=== PATIENT | male | born 1940 | race Caucasian/White ===

== ENCOUNTER 2020-08-12 09:13 | Inpatient (IN) ==
[2020-08-12] MEDS ORDERED: ONDANSETRON 4 MG/2 ML VIAL IV STA (09:41)
[2020-08-12] MEDS ORDERED: MORPHINE 4 MG/1 ML VIAL IV ONE (09:41)
[2020-08-12 10:18] LABS: Basophils # 0.1 10*3/uL (0.0-0.2); Basophils % 0.5 % (0.0-0.8); Eosinophils % 0.1 % (0.00-10.9); Hematocrit 41.1 VOL% (42.0-52.0); Hemoglobin 14.5 GM/DL (14.0-18.0); Immature Granulocytes % 0.6 %; Immature Granulocytes Absolute 0.08 #; Lymphocytes # 1.2 10*3/uL (1.4-4.0); Lymphocytes % 8.1 % (21.2-54.2); Mean Corpuscular HGB Conc 35.3 GM/DL (32-36); Mean Corpuscular Volume 89.9 FL (87-102); Mean Platelet Volume 9.1 FL (9.6-12.0); Monocytes % 10.6 % (1.7-12.7); Neutrophils % 80.1 % (38.7-73.9); Platelet Count 293 T/CUMM (130-400); Red Blood Count 4.57 MC/CUMM (3.8-5.5); White Blood Count 14.3 T/CUMM (4-12)
[2020-08-12 10:31] LABS: INR 1.2; PT Patient Result 12.4 SECS (9.8-11.9); Partial Thromboplastin Time 28.9 SECS (23.9-33.8)
[2020-08-12 10:46] LABS: Alanine Aminotransferase 26 U/L (16-61); Albumin 3.6 G/DL (3.4-5.0); Alkaline Phosphatase 73 U/L (45-117); Aspartate Amino Transferase 26 U/L (0-37); Blood Urea Nitrogen 12 MG/DL (7-18); Calcium 9.3 MG/DL (8.5-10.1); Estimated Glom Filtration Rate 75 ML/MIN; Glucose 160 MG/DL (74-106); Osmolality,Calculated 270.2 MOS/KG (273-304); Total Protein 8.2 G/DL (6.4-8.3); Troponin I < 0.015 NG/ML (0.00-0.045)
[2020-08-12] MEDS ORDERED: SODIUM CHLORIDE 0.9% 1,000 ML IV STA ×2 (12:45→13:43)
[2020-08-12] MEDS ORDERED: BISACODYL 5 MG TABLET PO PRN (12:51)
[2020-08-12] MEDS ORDERED: GLUCAGON 1 MG VIAL IM PRN (12:51)
[2020-08-12] MEDS ORDERED: ONDANSETRON 4 MG/2 ML VIAL IV PRN (12:51)
[2020-08-12] MEDS ORDERED: MORPHINE 4 MG/1 ML VIAL IV PRN (12:51)
[2020-08-12] MEDS ORDERED: DEXTROSE 50% 25 GM/50 ML VIAL IV PRN (12:51)
[2020-08-12] MEDS ORDERED: LEVOFLOXACIN INJ 750 MG in PREMIX 1 EACH IV STA (12:53)
[2020-08-12] MEDS: ALBUTEROL/IPRATROPIUM 3 ML NEB RESP TX SCH ×2 (13:20→19:18)
[2020-08-12] MEDS ORDERED: cefTRIAXone 1,000 MG in SYRINGE 1 EACH IV SCH (14:00)
[2020-08-12 14:05] LABS: ABG Base Excess 5.9 MMOL/L (-2.5-2.5); ABG HCO3 29.6 MMOL/L (20-26); ABG Oxygen Saturation 90.7 % (95-100); ABG PCO2 36.7 MM HG (35-48); ABG PH 7.507 (7.35-7.45); ABG PO2 57.1 MM HG (80-95); ABG TCO2 24.9 MMOL/L (23-27)
[2020-08-12] MEDS: KETOROLAC 15 MG/1 ML VIAL IV SCH ×2 (16:22→20:46)
[2020-08-12] MEDS: SODIUM CHLORIDE 0.9% 1,000 ML IV SCH (16:24)
[2020-08-12] MEDS: INSULIN REGULAR 100 UNIT/ML SUBCUT SCH ×2 (16:35→21:37)
[2020-08-12] MEDS: AZITHROMYCIN INJ 500 MG in SODIUM CHLORIDE 0.9% 250 ML IV SCH (16:37)
[2020-08-12] MEDS: ACETAMINOPHEN 325 MG TABLET PO PRN (18:21)
[2020-08-12] MEDS: CEFEPIME 1,000 MG in SODIUM CHLORIDE 0.9% 100 ML IV SCH ×2 (18:24→22:29)
[2020-08-13] MEDS: ALBUTEROL/IPRATROPIUM 3 ML NEB RESP TX SCH ×4 (01:16→19:23)
[2020-08-13] MEDS: KETOROLAC 15 MG/1 ML VIAL IV SCH ×3 (03:13→15:31)
[2020-08-13] MEDS: CEFEPIME 1,000 MG in SODIUM CHLORIDE 0.9% 100 ML IV SCH ×4 (03:17→21:08)
[2020-08-13] MEDS: ACETAMINOPHEN 325 MG TABLET PO PRN (04:27)
[2020-08-13] MEDS: SODIUM CHLORIDE 0.9% 1,000 ML IV SCH ×2 (04:28→16:33)
[2020-08-13 05:16] LABS: Basophils % 0.3 % (0.0-0.8); Eosinophils # 0.1 10*3/uL (0.0-0.87); Eosinophils % 0.4 % (0.00-10.9); Hematocrit 34.5 VOL% (42.0-52.0); Immature Granulocytes % 0.6 %; Lymphocytes # 0.8 10*3/uL (1.4-4.0); Mean Corpuscular HGB Conc 34.8 GM/DL (32-36); Mean Corpuscular Volume 92.7 FL (87-102); Mean Platelet Volume 9.6 FL (9.6-12.0); Monocytes % 6.8 % (1.7-12.7); Neutrophils % 86.9 % (38.7-73.9); Platelet Count 231 T/CUMM (130-400); Red Blood Count 3.72 MC/CUMM (3.8-5.5); Red Cell Distribution Width 12.1 % (9.3-17.3); White Blood Count 15.6 T/CUMM (4-12)
[2020-08-13 05:35] LABS: Calcium 7.7 MG/DL (8.5-10.1); Osmolality,Calculated 276.8 MOS/KG (273-304); Risk Ratio 1.69; VLDL CHOLESTEROL 10.2 MG/DL
[2020-08-13] MEDS: INSULIN REGULAR 100 UNIT/ML SUBCUT SCH ×4 (07:43→20:26)
[2020-08-13] MEDS: methylPREDNISolone SOD SUC 125 MG/2 ML VIAL IV SCH ×2 (10:56→18:20)
[2020-08-13] MEDS: guaiFENesin/DM ER 600-30 MG TABLET PO SCH ×2 (10:56→20:24)
[2020-08-13] MEDS: AZITHROMYCIN INJ 500 MG in SODIUM CHLORIDE 0.9% 250 ML IV SCH (15:32)
[2020-08-13] MEDS ORDERED: ZALEPLON 5 MG CAPSULE PO PRN (18:03)
[2020-08-14] MEDS: ALBUTEROL/IPRATROPIUM 3 ML NEB RESP TX SCH ×3 (01:11→13:30)
[2020-08-14] MEDS: methylPREDNISolone SOD SUC 125 MG/2 ML VIAL IV SCH ×2 (03:43→10:10)
[2020-08-14] MEDS: CEFEPIME 1,000 MG in SODIUM CHLORIDE 0.9% 100 ML IV SCH ×2 (03:46→10:10)
[2020-08-14 04:57] LABS: Basophils % 0.1 % (0.0-0.8); Hematocrit 32.5 VOL% (42.0-52.0); Hemoglobin 11.5 GM/DL (14.0-18.0); Immature Granulocytes % 0.7 %; Immature Granulocytes Absolute 0.09 #; Lymphocytes % 7.2 % (21.2-54.2); Mean Corpuscular HGB Conc 35.4 GM/DL (32-36); Mean Corpuscular Volume 90.3 FL (87-102); Mean Platelet Volume 9.1 FL (9.6-12.0); Monocytes % 2.1 % (1.7-12.7); Neutrophils % 89.9 % (38.7-73.9); Platelet Count 254 T/CUMM (130-400); Red Cell Distribution Width 11.9 % (9.3-17.3); White Blood Count 13.5 T/CUMM (4-12)
[2020-08-14 05:13] LABS: Osmolality,Calculated 279.7 MOS/KG (273-304)
[2020-08-14] MEDS ORDERED: POTASSIUM CHLORIDE 20 MEQ TABLET PO PRN (07:40)
[2020-08-14] MEDS: guaiFENesin/DM ER 600-30 MG TABLET PO SCH (08:44)
[2020-08-14] MEDS: INSULIN REGULAR 100 UNIT/ML SUBCUT SCH ×2 (08:46→11:35)
[2020-08-14] MEDS ORDERED: AZITHROMYCIN 250 MG TABLET PO SCH (09:00)
[2020-08-14 12:09] VITALS: BP 143/59
== END 2020-08-14 14:09 | disposition home or self-care (01) | DRG 177 ==
LOC: N.ED 09:13 → N.EDINP 12:51 → SUATTDRO 12:51 → N.3E 13:10
PROVIDERS: ADMIT Internal Medicine; ATTEND Internal Medicine

== ENCOUNTER 2021-10-23 11:10 | Inpatient (IN) ==
[2021-10-23 12:05] LABS: Basophils # 0.1 10*3/uL (0.0-0.2); Basophils % 0.9 % (0.0-0.8); Eosinophils # 0.3 10*3/uL (0.0-0.87); Eosinophils % 3.6 % (0.00-10.9); Hematocrit 37.1 VOL% (42.0-52.0); Hemoglobin 12.8 GM/DL (14.0-18.0); Immature Granulocytes % 0.4 %; Immature Granulocytes Absolute 0.03 #; Lymphocytes # 3.5 10*3/uL (1.4-4.0); Lymphocytes % 46.6 % (21.2-54.2); Mean Corpuscular HGB Conc 34.5 GM/DL (32-36); Mean Corpuscular Volume 95.4 FL (87-102); Mean Platelet Volume 8.9 FL (9.6-12.0); Monocytes % 10.5 % (1.7-12.7); Platelet Count 363 T/CUMM (130-400); Red Blood Count 3.89 MC/CUMM (3.8-5.5); White Blood Count 7.4 T/CUMM (4-12)
[2021-10-23 12:22] LABS: Albumin 3.1 G/DL (3.4-5.0); Bilirubin,Total 0.4 MG/DL (0.20-1.00); Calcium 8.6 MG/DL (8.5-10.1); Osmolality,Calculated 272.2 MOS/KG (273-304); Potassium 4.4 MMOL/L (3.5-5.1); Total Protein 7.4 G/DL (6.4-8.2)
[2021-10-23] MEDS ORDERED: THIAMINE INJ 100 MG, FOLIC ACID INJ 1 MG, MAGNESIUM SULF INJ 2 GM, MULTIVITAMIN INJ 10 ... IV ONE (12:28)
[2021-10-23 12:30] LABS: Anisocytosis Slight; Eosinophils 3 % (0-10); Lymphocytes 47 % (20-55); Macrocytosis Slight; Platelet Estimate Normal; Segmented Neutrophils 44 % (50-85); Total Cells Counted 100
[2021-10-23 12:40] LABS: Barbiturates Screen,Urine Negative (Negative); Benzodiazepines Screen,Urine Negative (Negative); Cannabinoid Screen,Urine Negative (Negative); Opiate Screen,Urine Negative (Negative); Phencyclidine Screen,Urine Negative (Negative)
[2021-10-23 12:42] LABS: Bilirubin,Urine Negative (Negative); Blood, Urine Negative (Negative); Glucose,Urine (UA) Negative (Negative); Hyaline Casts,Urine 1 /LPF (0-3); Ketones,Urine Negative (Negative); Nitrite,Urine Negative (Negative); Protein,Urine Negative; RBC,Urine 1 /HPF (0-4); Squamous Epithelial Cell,Urine Occasional /HPF (0-10); Urine Appearance CLEAR (Clear); Urine Color Yellow (Yellow); Urine Specific Gravity 1.006 (1.001-1.035); Urine Urobilinogen < 2.0 EU/DL (<2.0)
[2021-10-23] MEDS ORDERED: BISACODYL 5 MG TABLET PO PRN (14:33)
[2021-10-23] MEDS ORDERED: GLUCAGON 1 MG VIAL IM PRN (14:33)
[2021-10-23] MEDS ORDERED: DEXTROSE 50% 25 GM/50 ML SYRINGE IV PRN (14:33)
[2021-10-23] MEDS ORDERED: ONDANSETRON 4 MG/2 ML VIAL IV PRN (14:33)
[2021-10-23] MEDS ORDERED: NICOTINE 21 MG/24 HR PATCH TRANSDERM PRN (14:43)
[2021-10-23] MEDS ORDERED: ALBUTEROL 2.5 MG/3 ML NEB RESP TX PRN (14:44)
[2021-10-23] MEDS: LORazepam 1 MG TABLET PO SCH ×3 (19:42→23:15)
[2021-10-23] MEDS: DEXTROSE 5% NACL 0.9% 1,000 ML IV SCH ×2 (19:42→23:16)
[2021-10-23] MEDS: ENOXAPARIN 40 MG/0.4 ML SYRINGE SUBCUT SCH (19:42)
[2021-10-24] MEDS: LORazepam 1 MG TABLET PO SCH ×5 (02:08→20:30)
[2021-10-24 06:03] LABS: Basophils # 0.1 10*3/uL (0.0-0.2); Basophils % 0.8 % (0.0-0.8); Eosinophils # 0.1 10*3/uL (0.0-0.87); Eosinophils % 1.3 % (0.00-10.9); Hematocrit 35.9 VOL% (42.0-52.0); Hemoglobin 12.1 GM/DL (14.0-18.0); Immature Granulocytes % 0.7 %; Immature Granulocytes Absolute 0.05 #; Lymphocytes # 1.3 10*3/uL (1.4-4.0); Lymphocytes % 16.5 % (21.2-54.2); Mean Corpuscular HGB Conc 33.7 GM/DL (32-36); Mean Platelet Volume 9.3 FL (9.6-12.0); Monocytes % 14.9 % (1.7-12.7); Neutrophils % 65.8 % (38.7-73.9); Platelet Count 365 T/CUMM (130-400); Red Cell Distribution Width 12.1 % (9.3-17.3); White Blood Count 7.6 T/CUMM (4-12)
[2021-10-24] MEDS: DEXTROSE 5% NACL 0.9% 1,000 ML IV SCH ×4 (06:20→23:35)
[2021-10-24 06:25] LABS: Folate 16.64 NG/ML (5.38-24.0)
[2021-10-24 06:25] LABS: Calcium 8.4 MG/DL (8.5-10.1); Osmolality,Calculated 278.5 MOS/KG (273-304); Risk Ratio 1.95; Thyroid Stimulating Hormone 4.5 uIU/ml (0.358-3.74); VLDL Cholesterol 11.2 MG/DL
[2021-10-24 09:52] LABS: Free T4 (Free Thyroxine) 0.98 NG/DL (0.76-1.46)
[2021-10-24] MEDS: PANTOPRAZOLE 40 MG TABLET PO SCH (11:22)
[2021-10-24] MEDS: MONTELUKAST 10 MG TABLET PO SCH (11:24)
[2021-10-24] MEDS: THIAMINE INJ 100 MG, FOLIC ACID INJ 1 MG, MULTIVITAMIN INJ 10 ML in SODIUM CHLORIDE 0.9... IV SCH (11:58)
[2021-10-24] MEDS: ENOXAPARIN 40 MG/0.4 ML SYRINGE SUBCUT SCH (15:49)
[2021-10-24] MEDS: ATORVASTATIN 40 MG TABLET PO SCH (20:30)
[2021-10-24] MEDS ORDERED: OLANZapine 10 MG VIAL IM ONE (23:10)
[2021-10-25] MEDS: LORazepam 1 MG TABLET PO SCH ×5 (02:13→22:05)
[2021-10-25] MEDS ORDERED: LORazepam 2 MG/1 ML VIAL IV PRN (02:33)
[2021-10-25] MEDS: DEXTROSE 5% NACL 0.9% 1,000 ML IV SCH ×4 (04:14→22:05)
[2021-10-25 05:50] LABS: Basophils % 0.5 % (0.0-0.8); Eosinophils # 0.2 10*3/uL (0.0-0.87); Eosinophils % 3.3 % (0.00-10.9); Hematocrit 36.2 VOL% (42.0-52.0); Hemoglobin 12.3 GM/DL (14.0-18.0); Immature Granulocytes % 0.3 %; Immature Granulocytes Absolute 0.02 #; Lymphocytes # 2.1 10*3/uL (1.4-4.0); Mean Corpuscular Volume 97.3 FL (87-102); Monocytes % 8.8 % (1.7-12.7); Neutrophils % 59.1 % (38.7-73.9); Platelet Count 315 T/CUMM (130-400); Red Blood Count 3.72 MC/CUMM (3.8-5.5); Red Cell Distribution Width 11.9 % (9.3-17.3); White Blood Count 7.4 T/CUMM (4-12)
[2021-10-25] MEDS: VANCOMYCIN 50 MG/ML 60 ML/BOTTLE PO SCH ×3 (06:01→17:34)
[2021-10-25 06:13] LABS: Calcium 8.1 MG/DL (8.5-10.1); Osmolality,Calculated 274.5 MOS/KG (273-304); Potassium 3.4 MMOL/L (3.5-5.1)
[2021-10-25] MEDS: VALSARTAN 80 MG TABLET PO SCH (09:08)
[2021-10-25] MEDS: MONTELUKAST 10 MG TABLET PO SCH (09:09)
[2021-10-25] MEDS: METOPROLOL TARTRATE 50 MG TABLET PO SCH (09:09)
[2021-10-25] MEDS: PANTOPRAZOLE 40 MG TABLET PO SCH (09:09)
[2021-10-25] MEDS: THIAMINE INJ 100 MG, FOLIC ACID INJ 1 MG, MULTIVITAMIN INJ 10 ML in SODIUM CHLORIDE 0.9... IV SCH (09:12)
[2021-10-25] MEDS: ENOXAPARIN 40 MG/0.4 ML SYRINGE SUBCUT SCH (14:19)
[2021-10-25] MEDS: ATORVASTATIN 40 MG TABLET PO SCH (22:05)
[2021-10-26] MEDS: VANCOMYCIN 50 MG/ML 60 ML/BOTTLE PO SCH ×4 (00:55→19:23)
[2021-10-26] MEDS: LORazepam 2 MG/1 ML VIAL IV PRN (02:18)
[2021-10-26] MEDS: LORazepam 1 MG TABLET PO SCH ×4 (02:19→21:17)
[2021-10-26 04:59] LABS: Basophils # 0.1 10*3/uL (0.0-0.2); Basophils % 0.8 % (0.0-0.8); Eosinophils # 0.7 10*3/uL (0.0-0.87); Eosinophils % 10.9 % (0.00-10.9); Hemoglobin 11.1 GM/DL (14.0-18.0); Immature Granulocytes % 0.3 %; Immature Granulocytes Absolute 0.02 #; Lymphocytes # 1.8 10*3/uL (1.4-4.0); Lymphocytes % 28.2 % (21.2-54.2); Mean Corpuscular HGB Conc 33.6 GM/DL (32-36); Mean Corpuscular Volume 97.1 FL (87-102); Mean Platelet Volume 9.2 FL (9.6-12.0); Monocytes % 11.5 % (1.7-12.7); Neutrophils % 48.3 % (38.7-73.9); Platelet Count 293 T/CUMM (130-400); Red Cell Distribution Width 11.9 % (9.3-17.3); White Blood Count 6.4 T/CUMM (4-12)
[2021-10-26 05:33] LABS: Calcium 8.1 MG/DL (8.5-10.1); Potassium 3.4 MMOL/L (3.5-5.1)
[2021-10-26] MEDS: DEXTROSE 5% NACL 0.9% 1,000 ML IV SCH ×3 (06:05→23:45)
[2021-10-26] MEDS ORDERED: POTASSIUM CHLORIDE 20 MEQ TABLET PO ONE (08:10)
[2021-10-26] MEDS: MONTELUKAST 10 MG TABLET PO SCH (09:38)
[2021-10-26] MEDS: PANTOPRAZOLE 40 MG TABLET PO SCH (09:39)
[2021-10-26] MEDS: METOPROLOL TARTRATE 50 MG TABLET PO SCH (09:39)
[2021-10-26] MEDS: VALSARTAN 80 MG TABLET PO SCH (09:39)
[2021-10-26] MEDS: THIAMINE INJ 100 MG, FOLIC ACID INJ 1 MG, MULTIVITAMIN INJ 10 ML in SODIUM CHLORIDE 0.9... IV SCH (09:40)
[2021-10-26] MEDS: ACETAMINOPHEN 325 MG TABLET PO PRN (14:41)
[2021-10-26] MEDS: ENOXAPARIN 40 MG/0.4 ML SYRINGE SUBCUT SCH (14:43)
[2021-10-26] MEDS: ATORVASTATIN 40 MG TABLET PO SCH (21:17)
[2021-10-27] MEDS: VANCOMYCIN 50 MG/ML 60 ML/BOTTLE PO SCH ×4 (00:51→18:42)
[2021-10-27 05:20] LABS: Basophils # 0.1 10*3/uL (0.0-0.2); Eosinophils # 0.4 10*3/uL (0.0-0.87); Eosinophils % 7.1 % (0.00-10.9); Hematocrit 36.9 VOL% (42.0-52.0); Hemoglobin 12.4 GM/DL (14.0-18.0); Immature Granulocytes % 0.5 %; Immature Granulocytes Absolute 0.03 #; Lymphocytes # 1.9 10*3/uL (1.4-4.0); Lymphocytes % 31.9 % (21.2-54.2); Mean Corpuscular HGB Conc 33.6 GM/DL (32-36); Mean Corpuscular Volume 96.9 FL (87-102); Mean Platelet Volume 8.7 FL (9.6-12.0); Monocytes % 10.6 % (1.7-12.7); Neutrophils % 48.9 % (38.7-73.9); Platelet Count 268 T/CUMM (130-400); Red Blood Count 3.81 MC/CUMM (3.8-5.5); Red Cell Distribution Width 11.6 % (9.3-17.3)
[2021-10-27] MEDS: LORazepam 2 MG/1 ML VIAL IV PRN (05:28)
[2021-10-27 05:41] LABS: Calcium 8.1 MG/DL (8.5-10.1); Osmolality,Calculated 280.1 MOS/KG (273-304); Potassium 3.8 MMOL/L (3.5-5.1)
[2021-10-27] MEDS: LORazepam 1 MG TABLET PO SCH (09:27)
[2021-10-27] MEDS: MONTELUKAST 10 MG TABLET PO SCH (09:27)
[2021-10-27] MEDS: VALSARTAN 80 MG TABLET PO SCH (09:27)
[2021-10-27] MEDS: PANTOPRAZOLE 40 MG TABLET PO SCH (09:28)
[2021-10-27] MEDS: METOPROLOL TARTRATE 50 MG TABLET PO SCH (09:28)
[2021-10-27] MEDS: DEXTROSE 5% NACL 0.9% 1,000 ML IV SCH (10:13)
[2021-10-27] MEDS: THIAMINE INJ 100 MG, FOLIC ACID INJ 1 MG, MULTIVITAMIN INJ 10 ML in SODIUM CHLORIDE 0.9... IV SCH (10:35)
[2021-10-27] MEDS: ENOXAPARIN 40 MG/0.4 ML SYRINGE SUBCUT SCH (14:38)
[2021-10-27] MEDS: CLORAZEPATE 7.5 MG TABLET PO SCH ×2 (14:38→21:28)
[2021-10-27] MEDS: ATORVASTATIN 40 MG TABLET PO SCH (21:29)
[2021-10-28] MEDS: VANCOMYCIN 50 MG/ML 60 ML/BOTTLE PO SCH ×4 (00:05→17:40)
[2021-10-28 05:26] LABS: Basophils # 0.1 10*3/uL (0.0-0.2); Basophils % 0.8 % (0.0-0.8); Eosinophils # 0.3 10*3/uL (0.0-0.87); Eosinophils % 4.5 % (0.00-10.9); Hematocrit 32.7 VOL% (42.0-52.0); Hemoglobin 11.3 GM/DL (14.0-18.0); Immature Granulocytes % 0.5 %; Immature Granulocytes Absolute 0.03 #; Lymphocytes # 1.6 10*3/uL (1.4-4.0); Lymphocytes % 23.6 % (21.2-54.2); Mean Corpuscular HGB Conc 34.6 GM/DL (32-36); Mean Corpuscular Volume 95.9 FL (87-102); Mean Platelet Volume 8.9 FL (9.6-12.0); Monocytes % 10.9 % (1.7-12.7); Neutrophils % 59.7 % (38.7-73.9); Platelet Count 264 T/CUMM (130-400); Red Blood Count 3.41 MC/CUMM (3.8-5.5); Red Cell Distribution Width 11.7 % (9.3-17.3); White Blood Count 6.6 T/CUMM (4-12)
[2021-10-28 05:48] LABS: Calcium 8.3 MG/DL (8.5-10.1); Osmolality,Calculated 278.1 MOS/KG (273-304); Potassium 3.9 MMOL/L (3.5-5.1)
[2021-10-28] MEDS: CLORAZEPATE 7.5 MG TABLET PO SCH ×3 (09:25→21:53)
[2021-10-28] MEDS: VALSARTAN 80 MG TABLET PO SCH (09:25)
[2021-10-28] MEDS: PANTOPRAZOLE 40 MG TABLET PO SCH (09:26)
[2021-10-28] MEDS: METOPROLOL TARTRATE 50 MG TABLET PO SCH (09:26)
[2021-10-28] MEDS: MONTELUKAST 10 MG TABLET PO SCH (09:28)
[2021-10-28] MEDS: THIAMINE INJ 100 MG, FOLIC ACID INJ 1 MG, MULTIVITAMIN INJ 10 ML in SODIUM CHLORIDE 0.9... IV SCH (09:29)
[2021-10-28] MEDS ORDERED: MAGNESIUM SULF RIDER 4 GM/100 ML PREMIX IV ONE (15:11)
[2021-10-28] MEDS: ENOXAPARIN 40 MG/0.4 ML SYRINGE SUBCUT SCH (15:58)
[2021-10-28] MEDS: ATORVASTATIN 40 MG TABLET PO SCH (21:53)
[2021-10-29] MEDS: VANCOMYCIN 50 MG/ML 60 ML/BOTTLE PO SCH ×4 (00:58→17:12)
[2021-10-29 07:18] LABS: Basophils # 0.1 10*3/uL (0.0-0.2); Basophils % 0.8 % (0.0-0.8); Eosinophils # 0.5 10*3/uL (0.0-0.87); Eosinophils % 6.7 % (0.00-10.9); Hematocrit 32.1 VOL% (42.0-52.0); Immature Granulocytes % 0.4 %; Immature Granulocytes Absolute 0.03 #; Lymphocytes # 1.5 10*3/uL (1.4-4.0); Lymphocytes % 20.1 % (21.2-54.2); Mean Corpuscular HGB Conc 34.3 GM/DL (32-36); Mean Corpuscular Volume 95.8 FL (87-102); Mean Platelet Volume 9.2 FL (9.6-12.0); Monocytes % 10.3 % (1.7-12.7); Neutrophils % 61.7 % (38.7-73.9); Platelet Count 247 T/CUMM (130-400); Red Blood Count 3.35 MC/CUMM (3.8-5.5); Red Cell Distribution Width 11.9 % (9.3-17.3); White Blood Count 7.2 T/CUMM (4-12)
[2021-10-29 07:47] LABS: Calcium 8.3 MG/DL (8.5-10.1); Osmolality,Calculated 278.1 MOS/KG (273-304); Potassium 3.6 MMOL/L (3.5-5.1)
[2021-10-29] MEDS ORDERED: MAGNESIUM SULF RIDER 2 GM/50 ML PREMIX IV ONE (08:09)
[2021-10-29] MEDS: METOPROLOL TARTRATE 50 MG TABLET PO SCH (09:32)
[2021-10-29] MEDS: CLORAZEPATE 7.5 MG TABLET PO SCH ×3 (09:32→20:19)
[2021-10-29] MEDS: VALSARTAN 80 MG TABLET PO SCH (09:32)
[2021-10-29] MEDS: PANTOPRAZOLE 40 MG TABLET PO SCH (09:32)
[2021-10-29] MEDS: MONTELUKAST 10 MG TABLET PO SCH (09:33)
[2021-10-29] MEDS: THIAMINE INJ 100 MG, FOLIC ACID INJ 1 MG, MULTIVITAMIN INJ 10 ML in SODIUM CHLORIDE 0.9... IV SCH (14:28)
[2021-10-29] MEDS: ENOXAPARIN 40 MG/0.4 ML SYRINGE SUBCUT SCH (14:28)
[2021-10-29] MEDS: ATORVASTATIN 40 MG TABLET PO SCH (20:19)
[2021-10-30] MEDS: VANCOMYCIN 50 MG/ML 60 ML/BOTTLE PO SCH ×4 (01:43→20:10)
[2021-10-30 05:30] LABS: Basophils # 0.1 10*3/uL (0.0-0.2); Basophils % 1.1 % (0.0-0.8); Eosinophils # 0.5 10*3/uL (0.0-0.87); Eosinophils % 8.3 % (0.00-10.9); Hematocrit 33.2 VOL% (42.0-52.0); Immature Granulocytes % 0.4 %; Immature Granulocytes Absolute 0.02 #; Lymphocytes # 1.8 10*3/uL (1.4-4.0); Lymphocytes % 30.8 % (21.2-54.2); Mean Corpuscular HGB Conc 33.1 GM/DL (32-36); Mean Corpuscular Volume 97.4 FL (87-102); Mean Platelet Volume 9.6 FL (9.6-12.0); Monocytes % 11.6 % (1.7-12.7); Neutrophils % 47.8 % (38.7-73.9); Platelet Count 243 T/CUMM (130-400); Red Blood Count 3.41 MC/CUMM (3.8-5.5); Red Cell Distribution Width 11.9 % (9.3-17.3); White Blood Count 5.7 T/CUMM (4-12)
[2021-10-30 05:47] LABS: Calcium 8.5 MG/DL (8.5-10.1); Osmolality,Calculated 276.3 MOS/KG (273-304); Potassium 3.7 MMOL/L (3.5-5.1)
[2021-10-30] MEDS: CLORAZEPATE 7.5 MG TABLET PO SCH ×3 (10:28→20:10)
[2021-10-30] MEDS: VALSARTAN 80 MG TABLET PO SCH (10:28)
[2021-10-30] MEDS: METOPROLOL TARTRATE 50 MG TABLET PO SCH (10:28)
[2021-10-30] MEDS: PANTOPRAZOLE 40 MG TABLET PO SCH (10:29)
[2021-10-30] MEDS: MONTELUKAST 10 MG TABLET PO SCH (10:29)
[2021-10-30] MEDS: THIAMINE INJ 100 MG, FOLIC ACID INJ 1 MG, MULTIVITAMIN INJ 10 ML in SODIUM CHLORIDE 0.9... IV SCH (10:29)
[2021-10-30] MEDS ORDERED: MAGNESIUM SULF RIDER 2 GM/50 ML PREMIX IV ONE (12:48)
[2021-10-30 13:22] LABS: Basophils # 0.1 10*3/uL (0.0-0.2); Basophils % 0.8 % (0.0-0.8); Eosinophils # 0.4 10*3/uL (0.0-0.87); Eosinophils % 6.8 % (0.00-10.9); Hematocrit 31.2 VOL% (42.0-52.0); Hemoglobin 10.5 GM/DL (14.0-18.0); Immature Granulocytes % 0.2 %; Immature Granulocytes Absolute 0.01 #; Lymphocytes % 30.1 % (21.2-54.2); Mean Corpuscular HGB Conc 33.7 GM/DL (32-36); Mean Corpuscular Volume 96.6 FL (87-102); Mean Platelet Volume 9.2 FL (9.6-12.0); Monocytes % 13.2 % (1.7-12.7); Neutrophils % 48.9 % (38.7-73.9); Platelet Count 240 T/CUMM (130-400); Red Blood Count 3.23 MC/CUMM (3.8-5.5); Red Cell Distribution Width 11.9 % (9.3-17.3); White Blood Count 6.5 T/CUMM (4-12)
[2021-10-30] MEDS: ENOXAPARIN 40 MG/0.4 ML SYRINGE SUBCUT SCH (15:32)
[2021-10-30] MEDS: ATORVASTATIN 40 MG TABLET PO SCH (20:10)
[2021-10-31] MEDS: VANCOMYCIN 50 MG/ML 60 ML/BOTTLE PO SCH ×4 (00:21→17:37)
[2021-10-31] MEDS: ACETAMINOPHEN 325 MG TABLET PO PRN (01:49)
[2021-10-31 05:44] LABS: Calcium 8.2 MG/DL (8.5-10.1); Potassium 3.3 MMOL/L (3.5-5.1)
[2021-10-31] MEDS: PANTOPRAZOLE 40 MG TABLET PO SCH (08:33)
[2021-10-31] MEDS: VALSARTAN 80 MG TABLET PO SCH (08:34)
[2021-10-31] MEDS: CLORAZEPATE 7.5 MG TABLET PO SCH (08:34)
[2021-10-31] MEDS: METOPROLOL TARTRATE 50 MG TABLET PO SCH (08:34)
[2021-10-31] MEDS: MONTELUKAST 10 MG TABLET PO SCH (08:34)
[2021-10-31] MEDS ORDERED: TUBERCULIN SKIN TEST 0.1 ML SYRINGE INTRADERM ONE (09:12)
[2021-10-31] MEDS ORDERED: MAGNESIUM SULF RIDER 2 GM/50 ML PREMIX IV ONE (09:42)
[2021-10-31] MEDS ORDERED: POTASSIUM CHLORIDE 20 MEQ TABLET PO ONE (09:47)
[2021-10-31] MEDS: MULTIVITAMIN (OCUVITE) TABLET PO SCH (13:05)
[2021-10-31] MEDS: THIAMINE INJ 100 MG, FOLIC ACID INJ 1 MG, MULTIVITAMIN INJ 10 ML in SODIUM CHLORIDE 0.9... IV SCH (14:55)
[2021-10-31] MEDS: CLORAZEPATE 3.75 MG TABLET PO SCH ×2 (15:09→20:56)
[2021-10-31] MEDS: ENOXAPARIN 40 MG/0.4 ML SYRINGE SUBCUT SCH (15:10)
[2021-10-31] MEDS: DOCUSATE SODIUM 100 MG CAPSULE PO SCH (20:56)
[2021-10-31] MEDS: ATORVASTATIN 40 MG TABLET PO SCH (20:56)
[2021-11-01] MEDS: VANCOMYCIN 50 MG/ML 60 ML/BOTTLE PO SCH ×4 (00:26→17:47)
[2021-11-01 05:42] LABS: Calcium 8.8 MG/DL (8.5-10.1); Osmolality,Calculated 275.4 MOS/KG (273-304)
[2021-11-01] MEDS: VALSARTAN 80 MG TABLET PO SCH (09:38)
[2021-11-01] MEDS: THIAMINE 100 MG TABLET PO SCH (09:38)
[2021-11-01] MEDS: METOPROLOL TARTRATE 50 MG TABLET PO SCH (09:38)
[2021-11-01] MEDS: MULTIVITAMIN (CENTRUM) TABLET PO SCH (09:38)
[2021-11-01] MEDS: FOLIC ACID 1 MG TABLET PO SCH (09:38)
[2021-11-01] MEDS: CLORAZEPATE 3.75 MG TABLET PO SCH ×3 (09:38→21:10)
[2021-11-01] MEDS: DOCUSATE SODIUM 100 MG CAPSULE PO SCH ×2 (09:38→21:11)
[2021-11-01] MEDS: MULTIVITAMIN (OCUVITE) TABLET PO SCH (09:39)
[2021-11-01] MEDS: PANTOPRAZOLE 40 MG TABLET PO SCH (09:39)
[2021-11-01] MEDS: MONTELUKAST 10 MG TABLET PO SCH (09:39)
[2021-11-01] MEDS: ENOXAPARIN 40 MG/0.4 ML SYRINGE SUBCUT SCH (14:06)
[2021-11-01] MEDS: ATORVASTATIN 40 MG TABLET PO SCH (21:10)
[2021-11-02] MEDS: LORazepam 2 MG/1 ML VIAL IV PRN (00:17)
[2021-11-02] MEDS: VANCOMYCIN 50 MG/ML 60 ML/BOTTLE PO SCH ×4 (01:27→17:23)
[2021-11-02] MEDS: MONTELUKAST 10 MG TABLET PO SCH (09:11)
[2021-11-02] MEDS: METOPROLOL TARTRATE 50 MG TABLET PO SCH (09:11)
[2021-11-02] MEDS: DOCUSATE SODIUM 100 MG CAPSULE PO SCH ×2 (09:11→22:31)
[2021-11-02] MEDS: MULTIVITAMIN (CENTRUM) TABLET PO SCH (09:11)
[2021-11-02] MEDS: THIAMINE 100 MG TABLET PO SCH (09:11)
[2021-11-02] MEDS: MULTIVITAMIN (OCUVITE) TABLET PO SCH (09:11)
[2021-11-02] MEDS: VALSARTAN 80 MG TABLET PO SCH (09:11)
[2021-11-02] MEDS: FOLIC ACID 1 MG TABLET PO SCH (09:11)
[2021-11-02] MEDS: PANTOPRAZOLE 40 MG TABLET PO SCH (09:12)
[2021-11-02] MEDS: CLORAZEPATE 3.75 MG TABLET PO SCH ×3 (09:20→22:31)
[2021-11-02] MEDS: ENOXAPARIN 40 MG/0.4 ML SYRINGE SUBCUT SCH (14:54)
[2021-11-02] MEDS: ATORVASTATIN 40 MG TABLET PO SCH (22:31)
[2021-11-03] MEDS: VANCOMYCIN 50 MG/ML 60 ML/BOTTLE PO SCH ×5 (00:53→23:15)
[2021-11-03 05:56] LABS: Basophils # 0.1 10*3/uL (0.0-0.2); Basophils % 1.2 % (0.0-0.8); Eosinophils # 0.1 10*3/uL (0.0-0.87); Eosinophils % 3.5 % (0.00-10.9); Hematocrit 35.2 VOL% (42.0-52.0); Immature Granulocytes % 0.5 %; Immature Granulocytes Absolute 0.02 #; Lymphocytes # 1.5 10*3/uL (1.4-4.0); Lymphocytes % 37.4 % (21.2-54.2); Mean Corpuscular HGB Conc 34.1 GM/DL (32-36); Mean Corpuscular Volume 95.7 FL (87-102); Neutrophils % 43.4 % (38.7-73.9); Platelet Count 368 T/CUMM (130-400); Red Blood Count 3.68 MC/CUMM (3.8-5.5); Red Cell Distribution Width 11.8 % (9.3-17.3)
[2021-11-03 06:08] LABS: Calcium 8.4 MG/DL (8.5-10.1); Osmolality,Calculated 282.8 MOS/KG (273-304); Potassium 3.5 MMOL/L (3.5-5.1)
[2021-11-03] MEDS ORDERED: MAGNESIUM SULF RIDER 4 GM/100 ML PREMIX IV ONE (07:23)
[2021-11-03] MEDS: METOPROLOL TARTRATE 50 MG TABLET PO SCH (09:39)
[2021-11-03] MEDS: THIAMINE 100 MG TABLET PO SCH (09:39)
[2021-11-03] MEDS: PANTOPRAZOLE 40 MG TABLET PO SCH (09:39)
[2021-11-03] MEDS: CLORAZEPATE 3.75 MG TABLET PO SCH ×3 (09:39→21:07)
[2021-11-03] MEDS: MULTIVITAMIN (OCUVITE) TABLET PO SCH (09:39)
[2021-11-03] MEDS: FOLIC ACID 1 MG TABLET PO SCH (09:39)
[2021-11-03] MEDS: DOCUSATE SODIUM 100 MG CAPSULE PO SCH ×2 (09:39→21:07)
[2021-11-03] MEDS: MONTELUKAST 10 MG TABLET PO SCH (09:39)
[2021-11-03] MEDS: MULTIVITAMIN (CENTRUM) TABLET PO SCH (09:39)
[2021-11-03] MEDS: VALSARTAN 80 MG TABLET PO SCH (09:40)
[2021-11-03] MEDS: ENOXAPARIN 40 MG/0.4 ML SYRINGE SUBCUT SCH (15:50)
[2021-11-03] MEDS ORDERED: MELATONIN 3 MG TABLET PO SCH (21:00)
[2021-11-03] MEDS: MAGNESIUM CHLORIDE 64 MG TABLET PO SCH (21:07)
[2021-11-03] MEDS: ATORVASTATIN 40 MG TABLET PO SCH (21:07)
[2021-11-04] MEDS: VANCOMYCIN 50 MG/ML 60 ML/BOTTLE PO SCH ×2 (05:50→11:20)
[2021-11-04 06:21] LABS: Calcium 8.9 MG/DL (8.5-10.1); Osmolality,Calculated 273.5 MOS/KG (273-304); Potassium 3.7 MMOL/L (3.5-5.1)
[2021-11-04] MEDS: MAGNESIUM CHLORIDE 64 MG TABLET PO SCH (09:49)
[2021-11-04] MEDS: MONTELUKAST 10 MG TABLET PO SCH (09:49)
[2021-11-04] MEDS: CLORAZEPATE 3.75 MG TABLET PO SCH (09:49)
[2021-11-04] MEDS: MULTIVITAMIN (OCUVITE) TABLET PO SCH (09:50)
[2021-11-04] MEDS: METOPROLOL TARTRATE 50 MG TABLET PO SCH (09:50)
[2021-11-04] MEDS: DOCUSATE SODIUM 100 MG CAPSULE PO SCH (09:50)
[2021-11-04] MEDS: VALSARTAN 80 MG TABLET PO SCH (09:50)
[2021-11-04] MEDS: FOLIC ACID 1 MG TABLET PO SCH (09:50)
[2021-11-04] MEDS: PANTOPRAZOLE 40 MG TABLET PO SCH (09:50)
[2021-11-04] MEDS: MULTIVITAMIN (CENTRUM) TABLET PO SCH (09:50)
[2021-11-04] MEDS: THIAMINE 100 MG TABLET PO SCH (09:50)
[2021-11-04 12:01] VITALS: BP 154/76
== END 2021-11-04 15:15 | disposition swing bed (61) | DRG 897 ==
LOC: EDUNIT# → EDBD → SUATTDRO → N.ED 11:10 → N.TELEN 14:33 → SUATTDRO 14:33 → N.TELEN 19:25
PROVIDERS: ADMIT Internal Medicine; ATTEND Hospitalist